=== PATIENT | female | born 1955 | race African-American/Black ===

== ENCOUNTER 2019-08-16 20:34 | Inpatient (IN) | payer BC, MEDICAID ==
[~2019-08-16] VITALS: Ht 160 cm; Wt 93.7 kg
--- NOTE | 2019-08-16 20:40 | NUR ---
ED Nurse Note: patient brought into ED from home by ambulance RA 69 due to syncopal episode 20 minutes prior to arrival to ED. patient's witnessed and guided patient down to the floor. per EMS, patient was unresponsive for about 1 minute. patient is now alert awake x4 ambulatory breathing unlabored and even, speaking in full sentences. 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 patient's BS on the scene was 101 per EMS, also patient was initially hypotensive SBP 85. upon arrival patient's BP is within normal range.
--- NOTE | 2019-08-16 20:58 | Emergency Room Report ---
History of Present Illness General Chief Complaint: Syncope Source: Patient, EMS (Sumanth Jones MD) Present Illness HPI Patient is a 64-year-old female who presents after syncopal episode. Reports having recent headache and chills approximately 1 week ago. Had been having some loose stools recently. Patient was sitting on a sofa was noted to have syncopal episode. Patient was found to be hypotensive by paramedics. Patient had no known sick contacts. She had not been having any vomiting or known bleeding. Had had previous history of remote anemia. Patient denies any pain to her extremities. No known prior history of cancer. She had prior history of hypertension but did run out of her medications. 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: No (Sumanth Jones MD) Patient History Past Medical History: see triage record Reviewed Nursing Documentation: PMH: Agreed; PSxH: Agreed (Sumanth Jones MD) Review of Systems All Other Systems: negative except mentioned in HPI (Sumanth Jones MD) Physical Exam Vital Signs Date Time Temp Pulse Resp B/P (MAP) Pulse Ox O2 Delivery O2 Flow Rate FiO2 08/16/19 20:32 97.2 97 16 99/54 (69) 98 Room Air Sp02 EP Interpretation: reviewed, normal General Appearance: normal inspection, well appearing, no apparent distress, alert, GCS 15, obese Head: atraumatic ENT: normal ENT inspection, hearing grossly normal, normal voice Neck: normal inspection, full range of motion, supple, no bony tend Respiratory: normal inspection, lungs clear, normal breath sounds, no respiratory distress, no retraction, no wheezing Cardiovascular #1: normal peripheral pulses, regular rate, rhythm, no edema Gastrointestinal: normal inspection, normal bowel sounds, non tender, soft, no guarding, no hernia Genitourinary: no CVA tenderness Musculoskeletal: normal inspection, back normal, normal range of motion Neurologic: alert, motor strength/tone normal, planner chief III-XII nml as tested, oriented x3, responsive, speech normal, normal inspection Psychiatric: normal inspection, judgement/insight normal, mood/affect normal (Sumanth Jones MD) Medical Decision Making Diagnostic Impression: Primary Impression: Syncope Qualified Codes: R55 - Syncope and collapse Additional Impression: VILMA (acute kidney injury) ER Course Patient presented for syncope. Differential diagnosis include was not limited to arrhythmia, CHF, sepsis, dehydration, anemia among others. Because of complexity of patient's case laboratory tests and imaging studies were ordered. Patient initially had low blood pressure when seen by paramedics and this responded nicely to IV fluids. Patient had recurrent episode of near syncopal feeling without loss of consciousness while in the emergency department. She became hypotensive during this. Patient was placed supine. EKG interpreted by me showed normal sinus rhythm with a rate of [address] or T wave changes noted. Patient will likely require inpatient management due to recurrent episodes of hypotension.Laboratory testing was pending and hemolyzed. Patient was endorsed to Dr. Sosa pending reevaluation.Dr. lAmas Miles was contacted for inpatient management due to capitated physician Labs Test 08/16/19 21:30 08/16/19 22:43 08/16/19 23:40 White Blood Count 15.7 K/UL (4.8-10.8) Red Blood Count 4.17 M/UL (4.20-5.40) Hemoglobin 12.6 G/DL (12.0-16.0) Hematocrit 39.0 % (37.0-47.0) Mean Corpuscular Volume 93 FL (80-99) Mean Corpuscular Hemoglobin 30.3 PG (27.0-31.0) Mean Corpuscular Hemoglobin Concent 32.4 G/DL (32.0-36.0) Red Cell Distribution Width 14.2 % (11.6-14.8) Platelet Count 236 K/UL (150-450) Mean Platelet Volume 7.4 FL (6.5-10.1) Neutrophils (%) (Auto) 81.5 % (45.0-75.0) Lymphocytes (%) (Auto) 11.8 % (20.0-45.0) Monocytes (%) (Auto) 5.5 % (1.0-10.0) Eosinophils (%) (Auto) 0.8 % (0.0-3.0) Basophils (%) (Auto) 0.4 % (0.0-2.0) Prothrombin Time 24.5 SEC (9.30-11.50) Prothromb Time International Ratio 2.4 (0.9-1.1) Activated Partial Thromboplast Time 123 SEC (23-33) D-Dimer 0.32 mg/L FEU (0.00-0.49) C-Reactive Protein, Quantitative 6.1 mg/dL (0.00-0.90) (Sumanth Jones MD) ER Course Presents with syncope at rest. Supposedly out for about a minute. This is not clear-cut syncope. She has been complaining of dizziness. She has no abdominal pain or chest pain. Labs showed leukocytosis and elevated creatinine. CT head was negative for mass or bleed. Dr. Jones is ordered a CT of chest abdomen pelvis but creatinine is elevated 1.9. Patient has no abdominal pain or chest pain so I canceled this. Chest x-ray is negative. Patient will be admitted to telemetry. (Alfredo Sosa MD) EKG Diagnostic Results Rate: normal Rhythm: NSR ST Segments: no acute changes (Sumanth Jones MD) CT/MRI/US Diagnostic Results CT/MRI/US Diagnostic Results : Imaging Test Ordered: CT head Impression Per radiologist negative (Alfredo Sosa MD) Last Vital Signs Date Time Temp Pulse Resp B/P (MAP) Pulse Ox O2 Delivery O2 Flow Rate FiO2 08/16/19 20:32 97.2 97 16 99/54 (69) 98 Room Air Status: unchanged (Sumanth Jones MD) Status: improved (Alfredo Sosa MD) Disposition: ADMITTED INPATIENT Condition: Serious Scripts No Active Prescriptions or Reported Meds Sumanth Jones MD Aug 16, 2019 20:58 Alfredo Sosa MD Aug 17, 2019 00:25
--- NOTE | 2019-08-16 21:45 | NUR ---
ED Nurse Note: patient had hypotensive episode, patient is on the monitor, SBP was 70's to 80's. IVF started right away as ordered. notified to Dr. Jones, Dr. Jones at bedside.
[2019-08-16 21:48] LABS: BASOPHILS % (AUTO) 0.4 % (0.0-2.0); EOSINOPHILS % (AUTO) 0.8 % (0.0-3.0); HEMOGLOBIN 12.6 G/DL (12.0-16.0); LYMPHOCYTES % (AUTO) 11.8 % (20.0-45.0); MEAN CORPUSCULAR VOLUME 93 FL (80-99); MONOCYTES % (AUTO) 5.5 % (1.0-10.0); NEUTROPHILS % (AUTO) 81.5 % (45.0-75.0); PLATELET COUNT 236 K/UL (150-450); RED BLOOD COUNT 4.17 M/UL (4.20-5.40); RED CELL DISTRIBUTION WIDTH 14.2 % (11.6-14.8); WHITE BLOOD COUNT 15.7 K/UL (4.8-10.8)
[2019-08-16 21:51] VITALS: BP 84/57
[2019-08-16] MEDS ORDERED: Omnipaque-300 100ml vial INJ ONE (22:00)
--- NOTE | 2019-08-16 22:08 | Diagnostic Imaging Report ---
EXAM: XR Chest, 1 View CLINICAL HISTORY: SOB TECHNIQUE: Frontal portable view of the chest. COMPARISON: None. FINDINGS: Lungs: Unremarkable. No consolidation. Pleural space: Unremarkable. No pneumothorax. Heart: Unremarkable. No cardiomegaly. Mediastinum: Unremarkable. Bones/joints: Unremarkable. IMPRESSION: No acute cardiopulmonary disease.
--- NOTE | 2019-08-16 22:50 | NUR ---
ED Nurse Note: García ( ) [phone] updated. necklace was given back to the
[2019-08-16] MEDS ORDERED: Morphine Sulfate 2mg/ml Inj(IV/IM USE ONLY) IVP PRN (23:00)
[2019-08-16] MEDS ORDERED: Miralax 17gm pkt ORAL PRN (23:00)
[2019-08-16] MEDS ORDERED: Milk of Magnesia 30ml Ud ORAL PRN (23:00)
[2019-08-16] MEDS ORDERED: Morphine Sulfate 4mg/ml Inj (IV USE ONLY) IVP PRN (23:00)
[2019-08-16] MEDS ORDERED: Mylanta II UD 30ml ORAL PRN (23:00)
[2019-08-16 23:15] LABS: INR 2.4 (0.9-1.1)
[2019-08-16] MEDS ORDERED: Meclizine 25mg tab ORAL PRN (23:15)
--- NOTE | 2019-08-16 23:32 | NUR ---
HAND-OFF: Report given to Hollie WIN, endorsed all plan of care using SBAR .
--- NOTE | 2019-08-16 23:35 | NUR ---
ED Nurse Note: Pt brought into ED from home by ambulance RA 69 2/2 syncopal episode 20 min prior to arrival to ED. AO x 4, afebrile VSS Ambulatory, denies CP and SOB SR on conveyor monitor. No acute distress noted. Will continue to monitor.
--- NOTE | 2019-08-16 23:45 | NUR ---
All bloods redrawn.
[2019-08-16 23:59] LABS: ANION GAP 13 mmol/L (5-15); BLOOD UREA NITROGEN 58 mg/dL (7-18); CALCIUM 8.5 MG/DL (8.5-10.1); CARBON DIOXIDE 21 MMOL/L (21-32); CHLORIDE 106 MMOL/L (98-107); CREATININE 1.9 MG/DL (0.55-1.30); POTASSIUM 3.4 MMOL/L (3.5-5.1); SODIUM 140 MMOL/L (136-145)
[2019-08-17] VITALS (7 sets, daily range): BP systolic 109–136; BP diastolic 61–86
[2019-08-17 00:15] LABS: ALANINE AMINOTRANSFERASE 76 U/L (12-78); ALBUMIN 2.4 G/DL (3.4-5.0); ALBUMIN/GLOBULIN RATIO 0.5 (1.0-2.7); ALKALINE PHOSPHATASE 113 U/L (46-116); ASPARTATE AMINO TRANSFERASE 25 U/L (15-37); BILIRUBIN,TOTAL 0.5 MG/DL (0.2-1.0); CKMB 0.6 NG/ML (0.0-3.6); CREATINE KINASE 40 U/L (26-308); FERRITIN 545 NG/ML (8-388)
--- NOTE | 2019-08-17 00:49 | Diagnostic Imaging Report ---
EXAM: CT Head Without Intravenous Contrast CLINICAL HISTORY: AMS TECHNIQUE: Axial computed tomography images of the head/brain without intravenous contrast. CTDI is 53.4 mGy and DLP is 1098.9 mGy-cm. One or more of the following dose reduction techniques were used: automated exposure control, adjustment of the mA and/or kV according to patient size, use of iterative reconstruction technique. COMPARISON: No relevant prior studies available. FINDINGS: Brain: No hemorrhage, extra-axial fluid collection, mass effect, or edema. Ventricles: Unremarkable. Bones/joints: Unremarkable. No fracture. Soft tissues: Unremarkable. Sinuses: Unremarkable as visualized. Mastoid air cells: Unremarkable as visualized. IMPRESSION: 1. No acute intracranial abnormality.
--- NOTE | 2019-08-17 01:00 | NUR ---
ED Nurse Note: PT ambulated to the bathroom. No SOB or acute distress noted Will continue to monitor.
--- NOTE | 2019-08-17 03:00 | NUR ---
ED Nurse Note: Pt asleep comfortably. Afebrile and VSS. No acute distress noted. Will continue to monitor.
--- NOTE | 2019-08-17 04:30 | NUR ---
ED Nurse Note: AMLAB drawn and sent to the lab
[2019-08-17 05:03] LABS: BASOPHILS % (AUTO) 0.4 % (0.0-2.0); EOSINOPHILS % (AUTO) 0.3 % (0.0-3.0); HEMATOCRIT 39.5 % (37.0-47.0); HEMOGLOBIN 12.5 G/DL (12.0-16.0); LYMPHOCYTES % (AUTO) 15.9 % (20.0-45.0); MEAN CORPUSCULAR VOLUME 97 FL (80-99); MONOCYTES % (AUTO) 7.3 % (1.0-10.0); PLATELET COUNT 206 K/UL (150-450); RED BLOOD COUNT 4.09 M/UL (4.20-5.40); RED CELL DISTRIBUTION WIDTH 13.7 % (11.6-14.8); WHITE BLOOD COUNT 16.7 K/UL (4.8-10.8)
[2019-08-17 05:12] LABS: BLOOD UREA NITROGEN 56 mg/dL (7-18); CALCIUM 8.8 MG/DL (8.5-10.1); CHLORIDE 106 MMOL/L (98-107); CREATININE 1.8 MG/DL (0.55-1.30); POTASSIUM 4.2 MMOL/L (3.5-5.1); SODIUM 140 MMOL/L (136-145)
[2019-08-17 05:19] LABS: CARBON DIOXIDE 20 MMOL/L (21-32)
--- NOTE | 2019-08-17 07:11 | NUR ---
HAND-OFF: Report given to AUDELIA Miller. Endorsed POC.
--- NOTE | 2019-08-17 07:48 | NUR ---
ED Nurse Note:pt. is awake no signs of distress noted, breakfast provided, wating for bed placement
[2019-08-17] MEDS ORDERED: Docusate 100mg cap ORAL SCH (09:00)
--- NOTE | 2019-08-17 10:20 | NUR ---
ED Nurse Note:repeat BMP was sent to labs, given IV fluids
[2019-08-17 10:52] LABS: ANION GAP 11 mmol/L (5-15); BLOOD UREA NITROGEN 48 mg/dL (7-18); CALCIUM 8.1 MG/DL (8.5-10.1); CARBON DIOXIDE 23 MMOL/L (21-32); CHLORIDE 107 MMOL/L (98-107); CREATININE 1.5 MG/DL (0.55-1.30); POTASSIUM 3.7 MMOL/L (3.5-5.1); SODIUM 141 MMOL/L (136-145)
--- NOTE | 2019-08-17 10:54 | NUR ---
ED Nurse Note:called report to [facility] east- given to Michelle RN, pt. is stable to go up
--- NOTE | 2019-08-17 11:30 | NUR ---
NURSE NOTES: Patient arrived on unit. Stable. Denies pain or SOB. VSS. Patient's belongings are at bedside. Skin is c/d/i. Patient oriented to room, call light, and unit. Patient instructed to use call light for assistance, verbalized understanding. All safety measures provided. Patient is in bed in locked and lowest position with call light within reach. All needs met at this time. WIll continue to monitor.
[2019-08-17] MEDS ORDERED: Levofloxacin 500mg tab ORAL SCH (12:00)
--- NOTE | 2019-08-17 16:14 | History and Physical Report ---
DATE OF ADMISSION: 08/16/2019 HISTORY OF PRESENT ILLNESS: This is a 64-year-old female who came to the hospital after a syncopal episode. Patient reports being unwell for the last week or so. She reports also having diarrhea, none in the last 24 hours, but in the days previous. Patient denies any dietary indiscretion. Denies eating out. She has self-limited diarrhea, which has resolved. She came to the hospital after having syncopal episode that reports that she may have also had a syncopal episode in the emergency room as well. Patient was hypotensive per paramedics. In the ER in the last 16 hours, patient has been hypotensive to the mid 80s systolic yesterday. Currently blood pressure is over 100 systolic. Patient states she is feeling well. She has received fluid hydration in the emergency room. PAST MEDICAL HISTORY: Hypertension, although she currently takes no medications for the same. PREVIOUS SURGERIES: , fibroid resection, and hysterectomy. ALLERGIES: None. HOME MEDICATIONS: Currently none. REVIEW OF SYSTEMS: Denies any headaches. No recent hematemesis, melena, hematochezia, night sweats, or weight loss. PHYSICAL EXAMINATION: GENERAL: Reveals a 64-year-old obese female. HEENT: Unremarkable. CHEST: Clear breath sounds bilaterally. ABDOMEN: Soft. EXTREMITIES: There is no edema. NEUROLOGIC: Nonfocal. VITAL SIGNS: Blood pressure 109/60, heart rate 84, respirations , she is afebrile. LABORATORY DATA: [place] [address], otherwise normal CBC. There is mild left shift. Chemistry notable for creatinine of 1.8, BUN 56. Troponin negative. Magnesium 2.8, phosphorus 5. Coags negative. Head CT and x-ray chest negative. IMPRESSION: 1. Colitis. 2. Dehydration. 3. Azotemia. 4. Renal dysfunction secondary to ATN. 5. Hypertension, currently not on medications. 6. Previous and hysterectomy. DISCUSSION: Admit to the hospital. We will provide fluid hydration. We will give empiric antibiotics. We will observe in 24 hours. Discussed with patient who concurs. We will follow carefully. Almas Miles M.D. DR: SANDRA JOB#: [id number] CC:
--- NOTE | 2019-08-17 16:49 | NUR ---
CASE MANAGEMENT: INITIAL REVIEW 64YR OLD FEMALE BIBA FROM HOME CC:SYNCOPE SI:SYNCOPE . ACUTE KIDNEY INJURY 97.8 76 20 112/78 98% ON RA WBC 15.7 K+ 3.4 BUN/CREAT 58/1.9 BG 110 PHOS 5.0 MG 2.8 FERR 545 BNP 180 ALB 2.4 PT/INR 24.5/2.4 PTT 123 D-DIMER 1.50 IS:IVF NS BOLUS X2 CHEST X-RAY-No acute cardiopulmonary disease. CT HEAD-No acute intracranial abnormality. \: [facility]G UNIT DCP: HOME WHEN STABLE PLAN: IV HYDRATE
--- NOTE | 2019-08-17 19:29 | NUR ---
NURSE NOTES: Received report from AUDELIA Martinez. Pt is awake, lying semi-duque's; comfortably resting. No signs of acute distress noted. Pt denies any pain and dizziness at this time. AOx4; able to make needs known. Checked IV sites, line, and rate; patent, running, and flushed. No erythema, bleeding, or infiltration noted. Pt oriented with the room. Bed at lowest position. Brakes on. Siderails up x3. Call light within reach. Will continue to monitor.
--- NOTE | 2019-08-17 19:30 | NUR ---
HAND-OFF: Report given to Tiffanie WIN. Patient is stable.
[2019-08-17] MEDS: Heparin 5000 units/ml inj SUBQ SCH (20:24)
[2019-08-18 03:34] VITALS: BP 114/53
[2019-08-18 07:06] LABS: BASOPHILS % (AUTO) 0.4 % (0.0-2.0); EOSINOPHILS % (AUTO) 0.6 % (0.0-3.0); HEMATOCRIT 36.9 % (37.0-47.0); HEMOGLOBIN 11.6 G/DL (12.0-16.0); MEAN CORPUSCULAR VOLUME 96 FL (80-99); NEUTROPHILS % (AUTO) 74.1 % (45.0-75.0); PLATELET COUNT 213 K/UL (150-450); RED BLOOD COUNT 3.84 M/UL (4.20-5.40); RED CELL DISTRIBUTION WIDTH 13.9 % (11.6-14.8); WHITE BLOOD COUNT 16.4 K/UL (4.8-10.8)
[2019-08-18 07:18] LABS: ANION GAP 12 mmol/L (5-15); BLOOD UREA NITROGEN 26 mg/dL (7-18); CALCIUM 8.2 MG/DL (8.5-10.1); CARBON DIOXIDE 22 MMOL/L (21-32); CHLORIDE 108 MMOL/L (98-107); CREATININE 1.1 MG/DL (0.55-1.30); POTASSIUM 3.8 MMOL/L (3.5-5.1); SODIUM 142 MMOL/L (136-145)
--- NOTE | 2019-08-18 07:31 | NUR ---
HAND-OFF: Report given to AUDELIA Colon. Pt is awake, eating breakfast, and in stable condition. Plan of care endorsed.
--- NOTE | 2019-08-18 07:55 | NUR ---
NURSE NOTES: Received report from Tiffanie WIN, pt a/a/o x4 laying in bed with no signs of distress or other issues at this time. pt stated " I am ready to go home". no skin issues noted at this time. IV on the right wrist gauge#20 heplock. and left FA gauge #22 running NS @75ml/hr. pt is a regular diet and she is able to tolerated with no n/v. call light within reach, bed in lowest position. side rales up x2. I will f/u as needed.
[2019-08-18 08:00] VITALS: BP 130/68
[2019-08-18] MEDS: Heparin 5000 units/ml inj SUBQ SCH ×2 (08:30→20:29)
--- NOTE | 2019-08-18 10:22 | Pulmonology Progress Note ---
Subjective Interval Events: Feeling better Constitutional: Reports: no symptoms HEENT: Repors: no symptoms Respiratory: Reports: no symptoms Cardiovascular: Reports: no symptoms Gastrointestinal/Abdominal: Reports: no symptoms Genitourinary: Reports: no symptoms Allergies: Coded Allergies: No Known Allergies (Unverified , 08/16/19) Objective Last 24 Hour Vital Signs Date Time Temp Pulse Resp B/P (MAP) Pulse Ox O2 Delivery O2 Flow Rate FiO2 08/18/19 09:00 Room Air 08/18/19 08:00 98.8 87 18 130/68 (88) 96 08/18/19 03:34 99.3 86 20 114/53 (73) 96 08/17/19 21:00 Room Air 08/17/19 20:00 99.2 94 18 136/80 (98) 96 08/17/19 15:55 99.0 93 19 115/61 (79) 99 08/17/19 11:42 99.1 98 19 121/86 (98) 95 08/17/19 11:31 Room Air 08/17/19 10:53 97.8 87 20 109/62 97 Room Air 08/17/19 10:52 87 18 119/67 98 Room Air Intake and Output 08/17/19 08/18/19 19:00 07:00 Intake Total 240 ml Balance 240 ml Intake Oral 240 ml General Appearance: no acute distress Respiratory: chest wall non-tender, lungs clear Cardiovascular: normal peripheral pulses Abdomen: normal bowel sounds Microbiology Date/Time Source Procedure Growth Status 08/16/19 21:30 Blood Blood Culture - Preliminary Resulted 08/16/19 21:20 Blood Blood Culture - Preliminary NO GROWTH AFTER 24 HOURS Resulted 08/16/19 22:40 Nasopharynx SARS-CoV-2 RdRp Gene Assay - Final Complete Laboratory Tests 08/18/19 04:00: White Blood Count 16.4H, Red Blood Count 3.84L, Hemoglobin 11.6L, Hematocrit 36.9L, Mean Corpuscular Volume 96, Mean Corpuscular Hemoglobin 30.2, Mean Corpuscular Hemoglobin Concent 31.4L, Red Cell Distribution Width 13.9, Platelet Count 213, Mean Platelet Volume 6.9, Neutrophils (%) (Auto) 74.1, Lymphocytes (%) (Auto) 17.0L, Monocytes (%) (Auto) 8.0, Eosinophils (%) (Auto) 0.6, Basophils (%) (Auto) 0.4, Sodium Level 142, Potassium Level 3.8, Chloride Level 108H, Carbon Dioxide Level 22, Anion Gap 12, Blood Urea Nitrogen 26H, Creatinine 1.1, Estimat Glomerular Filtration Rate > 60, Glucose Level 75, Calcium Level 8.2L Current Medications Medications (Trade) Dose Ordered Sig/Vicente Route PRN Reason Start Time Stop Time Status Last Admin Dose Admin Acetaminophen (Tylenol) 650 mg Q4H PRN ORAL Mild Pain (Pain Scale 1-3) 08/17/19 10:30 09/16/19 10:29 Dextrose (Dextrose 50%) 25 ml Q30M PRN IV Hypoglycemia 08/17/19 10:30 11/15/19 10:29 Dextrose (Dextrose 50%) 50 ml Q30M PRN IV Hypoglycemia 08/17/19 10:30 11/15/19 10:29 Heparin Sodium (Porcine) (Heparin 5000 units/ml) 5,000 units EVERY 12 HOURS SUBQ 08/17/19 21:00 10/01/19 20:59 08/18/19 08:30 Levofloxacin (Levaquin) 250 mg Q24H ORAL 08/18/19 12:00 08/25/19 11:59 Levofloxacin (Levaquin) 500 mg ONCE ORAL 08/17/19 12:00 08/24/19 11:59 08/17/19 11:54 Meclizine HCl (Antivert) 25 mg Q6H PRN ORAL for dizziness 08/16/19 23:15 09/15/19 23:14 Ondansetron HCl (Zofran) 4 mg Q6H PRN IVP Nausea & Vomiting 08/17/19 10:30 09/16/19 10:29 Sodium Chloride 1,000 ml @ 75 mls/hr [id number] IVLG 08/17/19 11:21 09/16/19 11:20 08/18/19 03:31 Assessment/Plan Assessment/Plan IMPRESSION: 1. Colitis. 2. Dehydration. 3. Azotemia. 4. Renal dysfunction secondary to ATN. 5. Hypertension, currently not on medications. 6. Previous and hysterectomy. 7. Bacteremia DISCUSSION: Continue fluid hydration. Continue empiric antibiotics. ID [email or web address]. Discussed with patient who concurs. I will follow carefully. Alexia Pink Omar Syed [place] Aug 18, 2019 10:22
[2019-08-18 12:00] VITALS: BP 125/65
--- NOTE | 2019-08-18 12:06 | NUR ---
*-* INSURANCE *-* ALL AVAILABLE CLINICAL AND REVIEWS HAVE BEEN FAXED TO: [employer] P:[phone] F:[phone] & [facility] AUTH#[id number] FAX ALL CLINICALS TO [phone]
--- NOTE | 2019-08-18 13:06 | Infectious Diseases Prog Note ---
Assessment/Plan Assessment/Plan Full consult to follow: A) 1) ? gram + bacteremia vs contaminant 2) elevated wbc, ? source 3) ? infectious diarrhea 4) pmh noted 5) allergies - nkda P) 1) vancomycin started, on levofloxacin 2) f/u on cultures 3) monitor labs 4) imaging as indicated 5) thank you Subjective Allergies: Coded Allergies: No Known Allergies (Unverified , 08/16/19) Objective Last 24 Hour Vital Signs Date Time Temp Pulse Resp B/P (MAP) Pulse Ox O2 Delivery O2 Flow Rate FiO2 08/18/19 12:00 99.3 78 18 125/65 (85) 96 08/18/19 09:00 Room Air 08/18/19 08:00 98.8 87 18 130/68 (88) 96 08/18/19 03:34 99.3 86 20 114/53 (73) 96 08/17/19 21:00 Room Air 08/17/19 20:00 99.2 94 18 136/80 (98) 96 08/17/19 15:55 99.0 93 19 115/61 (79) 99 Height (Feet): 5 Height (Inches): 3.00 Weight (Pounds): 200 Microbiology Date/Time Source Procedure Growth Status 08/16/19 21:30 Blood Blood Culture - Preliminary Resulted 08/16/19 21:20 Blood Blood Culture - Preliminary NO GROWTH AFTER 24 HOURS Resulted 08/16/19 22:40 Nasopharynx SARS-CoV-2 RdRp Gene Assay - Final Complete Laboratory Tests Test 08/18/19 04:00 White Blood Count 16.4 K/UL (4.8-10.8) H Red Blood Count 3.84 M/UL (4.20-5.40) L Hemoglobin 11.6 G/DL (12.0-16.0) L Hematocrit 36.9 % (37.0-47.0) L Mean Corpuscular Volume 96 FL (80-99) Mean Corpuscular Hemoglobin 30.2 PG (27.0-31.0) Mean Corpuscular Hemoglobin Concent 31.4 G/DL (32.0-36.0) L Red Cell Distribution Width 13.9 % (11.6-14.8) Platelet Count 213 K/UL (150-450) Mean Platelet Volume 6.9 FL (6.5-10.1) Neutrophils (%) (Auto) 74.1 % (45.0-75.0) Lymphocytes (%) (Auto) 17.0 % (20.0-45.0) L Monocytes (%) (Auto) 8.0 % (1.0-10.0) Eosinophils (%) (Auto) 0.6 % (0.0-3.0) Basophils (%) (Auto) 0.4 % (0.0-2.0) Sodium Level 142 MMOL/L (136-145) Potassium Level 3.8 MMOL/L (3.5-5.1) Chloride Level 108 MMOL/L (98-107) H Carbon Dioxide Level 22 MMOL/L (21-32) Anion Gap 12 mmol/L (5-15) Blood Urea Nitrogen 26 mg/dL (7-18) H Creatinine 1.1 MG/DL (0.55-1.30) Estimat Glomerular Filtration Rate > 60 mL/min (>60) Glucose Level 75 MG/DL (74-106) Calcium Level 8.2 MG/DL (8.5-10.1) L Current Medications Medications (Trade) Dose Ordered Sig/Vicente Route PRN Reason Start Time Stop Time Status Last Admin Dose Admin Acetaminophen (Tylenol) 650 mg Q4H PRN ORAL Mild Pain (Pain Scale 1-3) 08/17/19 10:30 09/16/19 10:29 Dextrose (Dextrose 50%) 25 ml Q30M PRN IV Hypoglycemia 08/17/19 10:30 11/15/19 10:29 Dextrose (Dextrose 50%) 50 ml Q30M PRN IV Hypoglycemia 08/17/19 10:30 11/15/19 10:29 Heparin Sodium (Porcine) (Heparin 5000 units/ml) 5,000 units EVERY 12 HOURS SUBQ 08/17/19 21:00 10/01/19 20:59 08/18/19 08:30 Levofloxacin (Levaquin) 250 mg Q24H ORAL 08/18/19 12:00 08/25/19 11:59 08/18/19 12:30 Meclizine HCl (Antivert) 25 mg Q6H PRN ORAL for dizziness 08/16/19 23:15 09/15/19 23:14 Ondansetron HCl (Zofran) 4 mg Q6H PRN IVP Nausea & Vomiting 08/17/19 10:30 09/16/19 10:29 Sodium Chloride 1,000 ml @ 75 mls/hr [id number] IVLG 08/17/19 11:21 09/16/19 11:20 08/18/19 03:31 Vancomycin HCl (Vanco pharmacy to dose) 1 ea DAILY PRN MISC Per rx protocol 08/18/19 13:00 09/17/19 12:59 Mandy Finnegan MD Aug 18, 2019 13:06
--- NOTE | 2019-08-18 13:42 | NUR ---
P.T Note: P.T evaluation completed. Based P.T evaluation, pt is independent in all aspects of ADL/functional mobility and gait/ambulation. Pt's functional status does not warrant skilled P.T service at this time as patient current baseline function. Encouraged pt OOB activities i.e ambulation and up in chair VS bedrest unless otherwise ordered. D/C P.T service. Thank you for this referral.
[2019-08-18] MEDS ORDERED: Vancomycin 1750mg/D5W 550ml IVPB ONE ×2 (14:30)
[2019-08-18 16:00] VITALS: BP 151/87
--- NOTE | 2019-08-18 16:01 | NUR ---
CASE MANAGEMENT: REVIEW 08/18/19 SI:BACTEREMIA . SYNCOPE . ACUTE KIDNEY INJURY 99.3 78 18 125/65 96% ON RA WBC 16.4 BUN 26 CA+8.2 IS:IV NS @75ML/HR IV VANCOMYCIN X1 HEPARIN SQ BID \: 3E MED SURG UNIT DCP: HOME WHEN STABLE PLAN: IV HYDRATE START ON VANCO
--- NOTE | 2019-08-18 19:42 | NUR ---
HAND-OFF: Report given to Ted WIN, pt in stable condition. no signs of distress. - Incoming nurse is aware that urine and stool needs to be collected. pt is also aware.
--- NOTE | 2019-08-18 19:43 | NUR ---
NURSE NOTES: Received report from AUDELIA Conner. Patient in bed, no distress noted. Patient aware of need for urine and stool collection. IV in LFA, infusing NS at 75 cc/hr. Intact. Bed in low position, locked, side rails up x2, call light within reach. Will continue to monitor. Encouraged to call as needed.
[2019-08-18 20:15] VITALS: BP 140/75
[2019-08-18] MEDS: Vancomycin 1gm/D5W 275ml IVPB SCH ×2 (22:38)
[2019-08-18 23:17] LABS: APPEARANCE,URINE CLEAR; BILIRUBIN, URINE NEGATIVE (NEGATIVE); COLOR,URINE PALE YELLOW; GLUCOSE, URINE (UA) NEGATIVE (NEGATIVE); KETONES,URINE NEGATIVE (NEGATIVE); LEUKOCYTE ESTERASE ,URINE NEGATIVE (NEGATIVE); NITRITE,URINE NEGATIVE (NEGATIVE); PH,URINE 5 (4.5-8.0); PROTEIN,URINE NEGATIVE (NEGATIVE); UROBILINOGEN,URINE 1 MG/DL (0.0-1.0)
[2019-08-19] VITALS: BP 110/52
[2019-08-19 05:00] VITALS: BP 124/68
[2019-08-19 05:48] LABS: BASOPHILS % (AUTO) 0.5 % (0.0-2.0); HEMATOCRIT 34.4 % (37.0-47.0); LYMPHOCYTES % (AUTO) 21.4 % (20.0-45.0); MEAN CORPUSCULAR VOLUME 96 FL (80-99); MONOCYTES % (AUTO) 12.9 % (1.0-10.0); NEUTROPHILS % (AUTO) 64.2 % (45.0-75.0); PLATELET COUNT 241 K/UL (150-450); RED BLOOD COUNT 3.59 M/UL (4.20-5.40); RED CELL DISTRIBUTION WIDTH 13.4 % (11.6-14.8); WHITE BLOOD COUNT 15.6 K/UL (4.8-10.8)
[2019-08-19 05:56] LABS: ANION GAP 8 mmol/L (5-15); BLOOD UREA NITROGEN 16 mg/dL (7-18); CALCIUM 8.3 MG/DL (8.5-10.1); CARBON DIOXIDE 25 MMOL/L (21-32); CHLORIDE 108 MMOL/L (98-107); POTASSIUM 3.6 MMOL/L (3.5-5.1); SODIUM 141 MMOL/L (136-145)
--- NOTE | 2019-08-19 07:35 | NUR ---
HAND-OFF: Report given to AUDELIA Conner. Patient in stable condition.
--- NOTE | 2019-08-19 07:51 | NUR ---
NURSE NOTES: Received report from Cheri WIN, pt awake a/a/o x4 laying in bed with no signs of distress or other issues at this time. IV on the right wrist gauge#20 heplock, and left FA gauge #22 running NS@75ml/hr. pt eat her breakfast with no n/v. call light within reach, bed in lowest position. side rales up x2. I will f/u as needed.
[2019-08-19 08:00] VITALS: BP 137/74
[2019-08-19] MEDS: Levofloxacin 500mg tab ORAL SCH (08:39)
[2019-08-19] MEDS: Heparin 5000 units/ml inj SUBQ SCH ×2 (08:39→21:18)
--- NOTE | 2019-08-19 09:50 | Pulmonology Progress Note ---
Subjective Interval Events: Feeling better Constitutional: Reports: no symptoms HEENT: Repors: no symptoms Respiratory: Reports: no symptoms Cardiovascular: Reports: no symptoms Gastrointestinal/Abdominal: Reports: no symptoms Genitourinary: Reports: no symptoms Allergies: Coded Allergies: No Known Allergies (Unverified , 08/16/19) Objective Last 24 Hour Vital Signs Date Time Temp Pulse Resp B/P (MAP) Pulse Ox O2 Delivery O2 Flow Rate FiO2 08/19/19 05:00 98.9 77 20 124/68 (86) 97 08/19/19 00:00 99.1 76 20 110/52 (71) 99 08/18/19 21:45 98.6 08/18/19 21:45 98.6 08/18/19 21:00 Room Air 08/18/19 20:15 101.1 87 18 140/75 (96) 97 08/18/19 16:00 99.3 88 18 151/87 (108) 96 08/18/19 12:00 99.3 78 18 125/65 (85) 96 General Appearance: no acute distress Respiratory: chest wall non-tender, lungs clear Cardiovascular: normal peripheral pulses Abdomen: normal bowel sounds Microbiology Date/Time Source Procedure Growth Status 08/16/19 21:30 Blood Blood Culture - Preliminary Gram Positive Cocci Resulted 08/16/19 21:20 Blood Blood Culture - Preliminary NO GROWTH AFTER 48 HOURS Resulted 08/16/19 22:40 Nasopharynx SARS-CoV-2 RdRp Gene Assay - Final Complete Laboratory Tests 08/18/19 23:00: Urine Color Pale yellow, Urine Appearance Clear, Urine pH 5, Urine Specific [place] 1.010, Urine Protein Negative, Urine Glucose (UA) Negative, Urine Ketones Negative, Urine Blood Negative, Urine Nitrite Negative, Urine Bilirubin Negative, Urine Urobilinogen 1H, Urine Leukocyte Esterase Negative 08/19/19 05:05: White Blood Count 15.6H, Red Blood Count 3.59L, Hemoglobin 11.0L, Hematocrit 34.4L, Mean Corpuscular Volume 96, Mean Corpuscular Hemoglobin 30.6, Mean Corpuscular Hemoglobin Concent 31.9L, Red Cell Distribution Width 13.4, Platelet Count 241, Mean Platelet Volume 7.2, Neutrophils (%) (Auto) 64.2, Lymphocytes (%) (Auto) 21.4, Monocytes (%) (Auto) 12.9H, Eosinophils (%) (Auto) 1.0, Basophils (%) (Auto) 0.5, Sodium Level 141, Potassium Level 3.6, Chloride Level 108H, Carbon Dioxide Level 25, Anion Gap 8, Blood Urea Nitrogen 16, Creatinine 1.0, Estimat Glomerular Filtration Rate > 60, Glucose Level 100, Calcium Level 8.3L Current Medications Medications (Trade) Dose Ordered Sig/Vicente Route PRN Reason Start Time Stop Time Status Last Admin Dose Admin Acetaminophen (Tylenol) 650 mg Q4H PRN ORAL Mild Pain (Pain Scale 1-3) 08/17/19 10:30 09/16/19 10:29 08/18/19 20:27 Dextrose (Dextrose 50%) 25 ml Q30M PRN IV Hypoglycemia 08/17/19 10:30 11/15/19 10:29 Dextrose (Dextrose 50%) 50 ml Q30M PRN IV Hypoglycemia 08/17/19 10:30 11/15/19 10:29 Heparin Sodium (Porcine) (Heparin 5000 units/ml) 5,000 units EVERY 12 HOURS SUBQ 08/17/19 21:00 10/01/19 20:59 08/19/19 08:39 Levofloxacin (Levaquin) 500 mg DAILY ORAL 08/19/19 09:00 08/26/19 08:59 08/19/19 08:39 Meclizine HCl (Antivert) 25 mg Q6H PRN ORAL for dizziness 08/16/19 23:15 09/15/19 23:14 Ondansetron HCl (Zofran) 4 mg Q6H PRN IVP Nausea & Vomiting 08/17/19 10:30 09/16/19 10:29 Sodium Chloride 1,000 ml @ 75 mls/hr [id number] IVLG 08/17/19 11:21 09/16/19 11:20 08/18/19 14:01 Vancomycin HCl (Vanco pharmacy to dose) 1 ea DAILY PRN MISC Per rx protocol 08/18/19 13:00 09/17/19 12:59 Vancomycin HCl 1 gm/Dextrose 275 ml @ 183.708 mls/hr Q12HR@1100,2300 IVPB 08/18/19 23:00 08/23/19 22:59 08/18/19 22:38 Assessment/Plan Assessment/Plan IMPRESSION: 1. Colitis. 2. Dehydration. 3. Azotemia. 4. Renal dysfunction secondary to ATN. 5. Hypertension, currently not on medications. 6. Previous and hysterectomy. 7. Bacteremia DISCUSSION: Continue fluid hydration. Continue empiric antibiotics. ISSA cole noted. Discussed with patient who concurs. I will follow carefully. Await sensitivities WBC still high Almas Miles M.D. Almas Miles MD Aug 19, 2019 09:50
--- NOTE | 2019-08-19 09:50 | NUR ---
*-* INSURANCE *-* UPDATED CLINICALS HAVE BEEN FAXED TO: [facility] P:[phone] F:[phone] & TASIA EPPERSON AUTH#[id number] FAX ALL CLINICALS TO [phone] Addendum: 08/19/19 at 1059 by RODRI DELGADO CM [employer] AUTH#[id number] FAX CLINICALS TO [facility] P:[phone] F:[phone]
[2019-08-19 12:00] VITALS: BP 128/62
[2019-08-19] MEDS: Vancomycin 1gm/D5W 275ml IVPB SCH ×4 (12:17→23:40)
--- NOTE | 2019-08-19 14:27 | NUR ---
CASE MANAGEMENT: REVIEW 08/19/19 SI:BACTEREMIA . SYNCOPE . ACUTE KIDNEY INJURY 99.4 82 19 128/62 99% ON RA WBC 15.6 CA+8.3 IS:IV VANCOMYCIN BID LEVAQUIN PO QD HEPARIN SQ BID \: 3E MED SURG UNIT DCP: HOME WHEN STABLE PLAN: WBC STILL HIGH WAITING FOR SENSITIVITY REPORT TO PRESCRIBE ABX
--- NOTE | 2019-08-19 14:34 | NUR ---
CASE MANAGEMENT:NOTE LINDA SPOKE WITH LINDA MAK FROM [facility] P:[phone] F:[phone] CELL: [phone] THIS [facility] AWARE OF ANTICIPATED DISCHARGE ONCE BLOOD CULTURE SENSITIVITY REPORT COMPLETE; PLEASE CALL [facility] IF ANY DISCHARGE NEEDS
[2019-08-19 16:00] VITALS: BP 130/87
--- NOTE | 2019-08-19 19:08 | NUR ---
HAND-OFF: Report given to Cheri WIN, pt in stable condition. - OB collected pending results. - d/c IVF - plan to d/c home tomorrow
--- NOTE | 2019-08-19 19:10 | NUR ---
NURSE NOTES: Received report from AUDELIA Conner. Rounds done, patient sleeping on and off. Feeling well, no distress noted. Bed in low position, locked, side rails up x2, call light within reach. Saline locks in LFA and RW. Will continue to monitor.
--- NOTE | 2019-08-19 19:40 | NUR ---
NURSE NOTES: Left message for Dr Miles requesting med for heartburn. Patient complains of heartburn that worsens at night.
[2019-08-19 20:00] VITALS: BP 139/72
--- NOTE | 2019-08-19 20:25 | Infectious Diseases Prog Note ---
Assessment/Plan Assessment/Plan Full consult to follow: A) 1) ? gram + bacteremia vs contaminant 2) sepsis, elevated wbc, fevers, ? source 3) diarrhea - resolved, ? colitis 4) pmh noted 5) allergies - nkda P) 1) vancomycin, levofloxacin, flagyl 2) f/u on cultures 3) monitor labs 4) consider CT abdomen and pelvis for source w/u 5) echo - no vegetations seen Subjective Allergies: Coded Allergies: No Known Allergies (Unverified , 08/16/19) Objective Last 24 Hour Vital Signs Date Time Temp Pulse Resp B/P (MAP) Pulse Ox O2 Delivery O2 Flow Rate FiO2 08/19/19 16:00 99.7 87 18 130/87 (101) 96 08/19/19 12:00 99.4 82 19 128/62 (84) 99 08/19/19 09:00 Room Air 08/19/19 08:00 99.3 91 18 137/74 (95) 97 08/19/19 05:00 98.9 77 20 124/68 (86) 97 08/19/19 00:00 99.1 76 20 110/52 (71) 99 08/18/19 21:45 98.6 08/18/19 21:45 98.6 08/18/19 21:00 Room Air Height (Feet): 5 Height (Inches): 3.00 Weight (Pounds): 200 Microbiology Date/Time Source Procedure Growth Status 08/16/19 21:30 Blood Blood Culture - Preliminary Gram Positive Cocci Resulted 08/16/19 21:20 Blood Blood Culture - Preliminary NO GROWTH AFTER 48 HOURS Resulted 08/16/19 22:40 Nasopharynx SARS-CoV-2 RdRp Gene Assay - Final Complete Laboratory Tests Test 08/18/19 23:00 08/19/19 05:05 Urine Color Pale yellow Urine Appearance Clear Urine pH 5 (4.5-8.0) Urine Specific [place] 1.010 (1.005-1.035) Urine Protein Negative (NEGATIVE) Urine Glucose (UA) Negative (NEGATIVE) Urine Ketones Negative (NEGATIVE) Urine Blood Negative (NEGATIVE) Urine Nitrite Negative (NEGATIVE) Urine Bilirubin Negative (NEGATIVE) Urine Urobilinogen 1 MG/DL (0.0-1.0) H Urine Leukocyte Esterase Negative (NEGATIVE) White Blood Count 15.6 K/UL (4.8-10.8) H Red Blood Count 3.59 M/UL (4.20-5.40) L Hemoglobin 11.0 G/DL (12.0-16.0) L Hematocrit 34.4 % (37.0-47.0) L Mean Corpuscular Volume 96 FL (80-99) Mean Corpuscular Hemoglobin 30.6 PG (27.0-31.0) Mean Corpuscular Hemoglobin Concent 31.9 G/DL (32.0-36.0) L Red Cell Distribution Width 13.4 % (11.6-14.8) Platelet Count 241 K/UL (150-450) Mean Platelet Volume 7.2 FL (6.5-10.1) Neutrophils (%) (Auto) 64.2 % (45.0-75.0) Lymphocytes (%) (Auto) 21.4 % (20.0-45.0) Monocytes (%) (Auto) 12.9 % (1.0-10.0) H Eosinophils (%) (Auto) 1.0 % (0.0-3.0) Basophils (%) (Auto) 0.5 % (0.0-2.0) Sodium Level 141 MMOL/L (136-145) Potassium Level 3.6 MMOL/L (3.5-5.1) Chloride Level 108 MMOL/L (98-107) H Carbon Dioxide Level 25 MMOL/L (21-32) Anion Gap 8 mmol/L (5-15) Blood Urea Nitrogen 16 mg/dL (7-18) Creatinine 1.0 MG/DL (0.55-1.30) Estimat Glomerular Filtration Rate > 60 mL/min (>60) Glucose Level 100 MG/DL (74-106) Calcium Level 8.3 MG/DL (8.5-10.1) L Current Medications Medications (Trade) Dose Ordered Sig/Vicente Route PRN Reason Start Time Stop Time Status Last Admin Dose Admin Acetaminophen (Tylenol) 650 mg Q4H PRN ORAL Mild Pain (Pain Scale 1-3) 08/17/19 10:30 09/16/19 10:29 08/19/19 19:53 Dextrose (Dextrose 50%) 25 ml Q30M PRN IV Hypoglycemia 08/17/19 10:30 11/15/19 10:29 Dextrose (Dextrose 50%) 50 ml Q30M PRN IV Hypoglycemia 08/17/19 10:30 11/15/19 10:29 Heparin Sodium (Porcine) (Heparin 5000 units/ml) 5,000 units EVERY 12 HOURS SUBQ 08/17/19 21:00 10/01/19 20:59 08/19/19 08:39 Levofloxacin (Levaquin) 500 mg DAILY ORAL 08/19/19 09:00 08/26/19 08:59 08/19/19 08:39 Meclizine HCl (Antivert) 25 mg Q6H PRN ORAL for dizziness 08/16/19 23:15 09/15/19 23:14 Ondansetron HCl (Zofran) 4 mg Q6H PRN IVP Nausea & Vomiting 08/17/19 10:30 09/16/19 10:29 Vancomycin HCl (Vanco pharmacy to dose) 1 ea DAILY PRN MISC Per rx protocol 08/18/19 13:00 09/17/19 12:59 Vancomycin HCl 1 gm/Dextrose 275 ml @ 183.708 mls/hr Q12HR@1100,2300 IVPB 08/18/19 23:00 08/23/19 22:59 08/19/19 12:17 Mandy Onofre MD Aug 19, 2019 20:25
[2019-08-19] MEDS: metroNIDAZOLE 500mg tab ORAL SCH (21:16)
--- NOTE | 2019-08-19 22:27 | NUR ---
NURSE NOTES: Vanco trough pending. Will continue to monitor
[2019-08-20] VITALS: BP 117/62
[2019-08-20 04:00] VITALS: BP 121/63
[2019-08-20 06:23] LABS: BASOPHILS % (AUTO) 0.6 % (0.0-2.0); EOSINOPHILS % (AUTO) 1.7 % (0.0-3.0); HEMOGLOBIN 11.1 G/DL (12.0-16.0); LYMPHOCYTES % (AUTO) 18.8 % (20.0-45.0); MEAN CORPUSCULAR VOLUME 96 FL (80-99); MONOCYTES % (AUTO) 10.1 % (1.0-10.0); NEUTROPHILS % (AUTO) 68.9 % (45.0-75.0); PLATELET COUNT 265 K/UL (150-450); RED BLOOD COUNT 3.66 M/UL (4.20-5.40); RED CELL DISTRIBUTION WIDTH 13.4 % (11.6-14.8); WHITE BLOOD COUNT 13.2 K/UL (4.8-10.8)
[2019-08-20 06:38] LABS: ALANINE AMINOTRANSFERASE 23 U/L (12-78); ALBUMIN/GLOBULIN RATIO 0.4 (1.0-2.7); ALKALINE PHOSPHATASE 106 U/L (46-116); ANION GAP 9 mmol/L (5-15); ASPARTATE AMINO TRANSFERASE 20 U/L (15-37); BILIRUBIN,TOTAL 0.4 MG/DL (0.2-1.0); BLOOD UREA NITROGEN 11 mg/dL (7-18); CALCIUM 8.2 MG/DL (8.5-10.1); CARBON DIOXIDE 27 MMOL/L (21-32); CHLORIDE 107 MMOL/L (98-107); CREATININE 0.9 MG/DL (0.55-1.30); POTASSIUM 3.6 MMOL/L (3.5-5.1); SODIUM 143 MMOL/L (136-145)
[2019-08-20] MEDS: metroNIDAZOLE 500mg tab ORAL SCH (06:39)
--- NOTE | 2019-08-20 07:30 | NUR ---
HAND-OFF: Report given to AUDELIA Martinez. Patient in stable condition.
--- NOTE | 2019-08-20 07:30 | NUR ---
NURSE NOTES: Patient is in bed awake and able to verbalize needs. Stable. Breathing is even and unlabored. No visible signs of distress noted. Patient instructed to use call light for assistance, verbalized understanding. All needs met at this time. Patient is in bed in locked and lowest position with call light within reach. All safety measures provided. Will continue to monitor.
[2019-08-20 08:00] VITALS: BP 130/85
[2019-08-20] MEDS: Levofloxacin 500mg tab ORAL SCH (08:19)
[2019-08-20] MEDS: Heparin 5000 units/ml inj SUBQ SCH (08:20)
--- NOTE | 2019-08-20 09:04 | NUR ---
CASE MANAGEMENT: REVIEW 08/20/19 SI:BACTEREMIA . SYNCOPE . ACUTE KIDNEY INJURY 99.4 82 19 128/62 99% ON RA WBC 13.2 CA+8.2 ALB 2.0 IS: IV VANCOMYCIN BID FLAGYL PO TID LEVAQUIN PO QD HEPARIN SQ BID \: 3E MED SURG UNIT DCP: HOME WHEN STABLE PLAN: WBC TRENDING DOWN WAITING FOR SENSITIVITY REPORT TO PRESCRIBE ABX FOR DISCHARGE VANCO TROUGH 08/19/19= 14.6
[2019-08-20] MEDS: Vancomycin 1gm/D5W 275ml IVPB SCH ×2 (10:20)
--- NOTE | 2019-08-20 10:24 | Pulmonology Progress Note ---
Subjective Interval Events: Feeling better Constitutional: Reports: no symptoms HEENT: Repors: no symptoms Respiratory: Reports: no symptoms Cardiovascular: Reports: no symptoms Gastrointestinal/Abdominal: Reports: no symptoms Genitourinary: Reports: no symptoms Allergies: Coded Allergies: No Known Allergies (Unverified , 08/16/19) Objective Last 24 Hour Vital Signs Date Time Temp Pulse Resp B/P (MAP) Pulse Ox O2 Delivery O2 Flow Rate FiO2 08/20/19 08:09 Room Air 08/20/19 08:00 98.9 90 19 130/85 (100) 96 08/20/19 04:00 98.7 76 17 121/63 (82) 98 08/20/19 00:00 98.6 74 20 117/62 (80) 96 08/19/19 21:00 Room Air 08/19/19 20:00 100.9 91 18 139/72 (94) 97 08/19/19 16:00 99.7 87 18 130/87 (101) 96 08/19/19 12:00 99.4 82 19 128/62 (84) 99 General Appearance: no acute distress Respiratory: chest wall non-tender, lungs clear Cardiovascular: normal peripheral pulses Abdomen: normal bowel sounds Microbiology Date/Time Source Procedure Growth Status 08/18/19 15:15 Blood Blood Culture - Preliminary NO GROWTH AFTER 24 HOURS Resulted 08/18/19 15:05 Blood Blood Culture - Preliminary NO GROWTH AFTER 24 HOURS Resulted Laboratory Tests 08/19/19 21:55: Vancomycin Level Trough 14.6H 08/20/19 05:00: White Blood Count 13.2H, Red Blood Count 3.66L, Hemoglobin 11.1L, Hematocrit 35.0L, Mean Corpuscular Volume 96, Mean Corpuscular Hemoglobin 30.4, Mean Corpuscular Hemoglobin Concent 31.8L, Red Cell Distribution Width 13.4, Platelet Count 265, Mean Platelet Volume 6.7, Neutrophils (%) (Auto) 68.9, Lymphocytes (%) (Auto) 18.8L, Monocytes (%) (Auto) 10.1H, Eosinophils (%) (Auto ) 1.7, Basophils (%) (Auto) 0.6, Sodium Level 143, Potassium Level 3.6, Chloride Level 107, Carbon Dioxide Level 27, Anion Gap 9, Blood Urea Nitrogen 11 , Creatinine 0.9, Estimat Glomerular Filtration Rate > 60, Glucose Level 93, Calcium Level 8.2L, Total Bilirubin 0.4, Aspartate Amino Transf (AST/SGOT) 20, Alanine Aminotransferase (ALT/SGPT) 23, Alkaline Phosphatase 106, Total Protein 6.8, Albumin 2.0L, Globulin 4.8, Albumin/Globulin Ratio 0.4L Current Medications Medications (Trade) Dose Ordered Sig/Vicente Route PRN Reason Start Time Stop Time Status Last Admin Dose Admin Acetaminophen (Tylenol) 650 mg Q4H PRN ORAL Mild Pain (Pain Scale 1-3) 08/17/19 10:30 09/16/19 10:29 08/19/19 19:53 Dextrose (Dextrose 50%) 25 ml Q30M PRN IV Hypoglycemia 08/17/19 10:30 11/15/19 10:29 Dextrose (Dextrose 50%) 50 ml Q30M PRN IV Hypoglycemia 08/17/19 10:30 11/15/19 10:29 Heparin Sodium (Porcine) (Heparin 5000 units/ml) 5,000 units EVERY 12 HOURS SUBQ 08/17/19 21:00 10/01/19 20:59 08/20/19 08:20 Levofloxacin (Levaquin) 500 mg DAILY ORAL 08/19/19 09:00 08/26/19 08:59 08/20/19 08:19 Meclizine HCl (Antivert) 25 mg Q6H PRN ORAL for dizziness 08/16/19 23:15 09/15/19 23:14 Metronidazole (Flagyl) 500 mg EVERY 8 HOURS ORAL 08/19/19 22:00 08/26/19 21:59 08/20/19 06:39 Ondansetron HCl (Zofran) 4 mg Q6H PRN IVP Nausea & Vomiting 08/17/19 10:30 09/16/19 10:29 Vancomycin HCl (Vanco pharmacy to dose) 1 ea DAILY PRN MISC Per rx protocol 08/18/19 13:00 09/17/19 12:59 Vancomycin HCl 1 gm/Dextrose 275 ml @ 183.708 mls/hr Q12HR@1100,2300 IVPB 08/18/19 23:00 08/23/19 22:59 08/19/19 23:40 Assessment/Plan Assessment/Plan IMPRESSION: 1. Colitis. 2. Dehydration. 3. Azotemia. 4. Renal dysfunction secondary to ATN. 5. Hypertension, currently not on medications. 6. Previous and hysterectomy. 7. Bacteremia; suspect contaminant DISCUSSION: Doing much better ID kelsey noted. Discussed with patient who concurs. I will follow carefully. WBC better Almas Miles M.D. Almas Miles MD Aug 20, 2019 10:24
[2019-08-20] MEDS ORDERED: FLAGYL500 MG ORAL (10:44)
[2019-08-20] MEDS ORDERED: CIPRO500 MG PO (10:44)
--- NOTE | 2019-08-20 11:24 | NUR ---
*-* INSURANCE *-* UPDATED CLINICALS HAVE BEEN FAXED TO: [facility] P:[phone] F:[phone] & [facility] AUTH#[id number] P:[phone] F:[phone]
[2019-08-20 12:00] VITALS: BP 149/75
--- NOTE | 2019-08-20 13:00 | NUR ---
NURSE NOTES: All belongings given to patient. Prescription given to patient.
--- NOTE | 2019-08-20 13:00 | NUR ---
NURSE NOTES: Patient discharged home as ordered. Stable. Denies pain or SOB. Patient was given thorough discharge instructions by RN, verbalized understanding. Patient stated that she will get prescription filled from home pharmacy. Skin is c/d/i. IV removed. Patient assisted outside by staff without incident.
[2019-08-20] MEDS ORDERED: Tubing IV Secondary IV ONE (13:10)
[2019-08-20] MEDS ORDERED: NS 275ml ONE (13:10)
--- NOTE | 2019-08-20 20:51 | CDS Physician Query ---
PLEASE COMPLETE DOCUMENT BEFORE SIGNING Dear Dr. Miles Date: 08/20/19 Wad Compressor Operator Adjuster/CDS Name: Prince Olivas Wad Compressor Operator Adjuster/CDS Phone No.: Exercise your independent professional judgment when responding to the query. Questions asked do not imply a particular answer is desired or expected. We greatly appreciate your clarification on this issue. CLINICAL DOCUMENTATION STATES: Sepsis, elevated wbc, fevers, ? source Diarrhea - resolved, ? colitis CLINICAL FINDINGS SHOW: Clarification is needed for one (or more) of the following conditions in order to accurately assign the "present on admission' indicator. Please choose the answer that best indicates whether the associated condition was present at the time of the order for inpatient admission. Thank you. DIAGNOSIS: SEPSIS Was the SEPSIS Present on admission? [] YES [] NO [] Clinically Undeterminable Please also document in your Progress Notes and/or Discharge Summary and indicate if the condition was present on admission. Alexia HSIEH
--- NOTE | 2019-08-20 22:14 | Consultation ---
DATE OF CONSULTATION: 08/19/2019 INFECTIOUS DISEASES CONSULTATION CONSULTING PHYSICIAN: Mandy Onofre MD. ATTENDING PHYSICIAN: Almas Miles MD. REFERRING PHYSICIAN: Almas Miles MD. REASON FOR CONSULTATION: Sepsis, gram-positive bacteremia, colitis, leukocytosis, fevers. CHIEF COMPLAINT: The patient's chief complaint coming in to the hospital is elevated white count, syncopal episode, and diarrhea. HISTORY OF PRESENT ILLNESS: This is a very pleasant 64-year-old female who presents to [facility] with syncopal episode. The patient claims she had diarrhea, which has resolved. The patient had 1 bottle that grew out gram-positive organisms. Infectious Diseases consultation was requested to see this patient because of possible sepsis, elevated white count, syncopal episode, and gram-positive blood cultures. The patient did also have temperature of 101.1. MAR was noted. Orders were noted. Notes were reviewed. Case was discussed with Dr. Miles. REVIEW OF SYSTEMS: CONSTITUTIONAL: As discussed, she came in with syncopal episode. She had temperature of 101.1. She did have diarrhea that is resolved. HEAD AND NECK: Otherwise, no head pain or neck pain. No neck stiffness. CARDIAC: No chest pain. GASTROINTESTINAL: Diarrhea resolved. No nausea, vomiting, or abdominal pain at this time. GENITOURINARY: No urinary symptoms. PULMONARY: No congestion or shortness of breath. SKIN: No rash. NEUROLOGIC: No seizures. PAST MEDICAL HISTORY: Includes history of following. The patient has past medical history of hypertension, she is not on treatment. She has history of , fibroid resection, and hysterectomy. No other significant past medical history. ALLERGIES: No known drug allergies. No antibiotic allergies. SOCIAL HISTORY: Negative for smoking, alcohol, or drug abuse. FAMILY HISTORY: Noncontributory. No mention of tuberculosis or cancer. MEDICATIONS: Upon reviewing the MAR, she is on following medications. She is on Levaquin, vancomycin, Flagyl, heparin, acetaminophen, Zofran, and meclizine. Outside medications noted and reconciliated. PHYSICAL EXAMINATION: VITAL SIGNS: T-max 101.1. Currently vital signs, temperature 99.7, pulse rate 87, respiratory rate 18, blood pressure 130/87, sats 96% on room air. GENERAL: Alert, responsive, in no acute distress. HEAD AND NECK: Oral exam, no thrush. Eye exam, no icterus. Normocephalic. No JVD. No icterus or thrush. Neck is supple. HEART: Regular. No gallop or murmur. ABDOMEN: Soft. Positive bowel sounds. Nontender. LUNGS: Clear bilaterally. No rhonchi or rales. SKIN: No rash. MUSCULOSKELETAL: No effusion. Legs are without cellulitis. PERIPHERAL VASCULAR: No cyanosis. GENITOURINARY: No Navarrete. No cva pain. LINE SITES: Without phlebitis. NEUROLOGIC: Intact. Alert and oriented x3. Nonfocal. LABORATORY AND DIAGNOSTIC DATA: The patient's white count 15.6, hemoglobin 11.0. Creatinine 1.0. Urinalysis was leukocyte esterase negative. Cultures, 1 bottle has gram-positive organisms, gram-positive cocci in chains that was only in 1 bottle. Followup blood cultures have been ordered. Echo showed no vegetations. Initial chest x-ray showed no acute cardiopulmonary disease. ASSESSMENT AND PLAN: 1. The patient has possible sepsis, elevated white count, and fevers. The patient has possible gram-positive bacteremia versus contaminant. Source is unclear at this time. She did have diarrhea resolved. She had syncopal episode. At this time, she is currently on vancomycin, Levaquin, and Flagyl. We will continue vancomycin, Levaquin, and Flagyl for possible sepsis and possible gram-positive bacteremia. Echo without vegetations. Check followup labs. Check identification of blood cultures. The patient may need a CT scan if it does not improve. 2. The patient has hypertension. 3. Syncopal episode. 4. Diarrhea, resolved. 5. COVID testing was negative. 6. History of . 7. History of untreated hypertension. 8. Fibroid resection. 9. Hysterectomy. 10. Continue treatment per primary consultants. 11. No known drug allergies. 12. Social history is negative. 13. Family history is noncontributory. 14. MAR was noted. 15. Case was discussed with RN. Mandy Onofre M.D. DR: Porfirio JOB#: [id number] CC: [email or web address]
--- NOTE | 2019-08-21 16:00 | NUR ---
*-* NO DISCHARGE SUMMARY IN THE SYSTEM UNABLE TO INS CO. *-*
--- NOTE | 2019-08-22 09:09 | Discharge Summary ---
Discharge Summary Discharge Summary _ DATE OF ADMISSION: 08/16/2019 DATE OF DISCHARGE: 08/20/2019 DISCHARGED BY: Dr. Miles REASON FOR ADMISSION: 64 years old female with past medical history of hypertension, presented after syncopal episode. Patient was found to be hypotensive by paramedics. Patient reported history of hypertension but ran out of her medication and currently did not take any. Upon evaluation in ED blood pressure was 99/54 . Patient responded well to IV fluid bolus. Patient reported not feeling well for a week or so Patient also reported having diarrhea which self resolved in the last 24 hours. Patient denied eating out. Patient denies any dietary indiscretion Patient denies any sick contacts. No history of cancer. While in the emergency room patient had recurrent episode of near syncopal feeling without loss of consciousness. Patient became hypotensive during this episode . EKG revealed normal sinus rhythm no acute ischemic changes. Troponin negative. ProBNP 180 Laboratory work-up revealed leukocytosis WBC 15.7, stable hemoglobin, hematocrit and platelet count. D-dimer 0.32 , CRP 6.1. Ferritin 545 . Potassium 3.4. BUN 58, creatinine 1.9. Urinalysis revealed no evidence of urinary tract infection. Chest x-ray revealed no acute cardiopulmonary pathology. CT of the head revealed no evidence of acute intracranial pathology. Patient was swabbed for CoVID 19. In emergency department patient received IV fluids and admitted to the floor for further management CONSULTANTS: ISSA specialist Dr. Onofre [facility]: Patient admitted and received IV hydration , patient started on empiric antibiotic. Blood culture / revealed Strep species alpha-hemolytic , repeated blood culture were negative. Initial positive blood culture was probably contaminant. Echocardiogram revealed no evidence of vegetation. Stool culture was negative. SARS COV 2 by PCR was not detected. Leukocytosis trending down. Episodes of fever resolved. Diarrhea resolved. Patient was discharged home on oral antibiotic for additional 7 days to complete the course. Consider CT scan of the abdomen and pelvis as outpatient. DVT and GI prophylaxis Pain management addressed as needed. Renal parameters and electrolytes were closely monitored, electrolytes corrected as needed. BUN from 58 down to 11 , creatinine from 1.9 down to 0.9. Renal dysfunction initially was likely due to acute tubular necrosis brought by hypotension and dehydration secondary to diarrhea Blood pressure was closely monitor and remained stable after IV hydration. No need for antihypertensive medications at this time. Patient should follow-up with a primary care provider for further management of hypertension. Patient clinically stabilized and was ready for discharge home. FINAL DIAGNOSES: Sepsis Dehydration Diarrhea- resolved ATN History of hypertension Prior and hysterectomy DISCHARGE MEDICATIONS: See Medication Reconciliation list. DISCHARGE INSTRUCTIONS: Patient was discharged home. Follow-up with a primary care provider in 1 week. I have been assigned to dictate discharge summary for this account. I was not involved in the patient's management. Malena Balke NP Aug 22, 2019 09:09
--- NOTE | 2019-08-22 09:50 | NUR ---
*-* INSURANCE *-* DISCHARGE SUMMARY HAS BEEN FAXED TO: [facility] P:[phone] F:[phone] & [facility] AUTH#[id number] P:[phone] F:[phone]
== END 2019-08-20 13:11 | disposition home or self-care (01) | DRG 871 ==
LOC: EDBD 20:34 → EMR 21:20 → 3E 23:39 → EDBEDREQSVC 08-17 10:27 → EDBEDREQ 08-17 10:40 → 3E 08-18 10:24
DX: A41.9 Sepsis, unspecified organism (principal); N17.0 Acute kidney failure with tubular necrosis; E86.0 Dehydration; I10 Essential (primary) hypertension; R19.7 Diarrhea, unspecified
CPT/HCPCS: 36415; 70450; 71045; 80048; 80053; 80202; 81003; 82550; 82553; 82728; 83605; 83690; 83735; 83880; 84100; 84484; 85025; 85379; 85610; 85730; 86140; 86850; 86900; 86901; 87040; 87045; 87181; 93005; 93306; 96361; 96365; 99285; U0002